=== PATIENT | female | born 1935 | race Caucasian/White ===

== ENCOUNTER → 2023-08-06 16:28 | Outpatient (REF) | payer OTHER, SELFPAY | LOC: RAD 16:28 | PROVIDERS: ATTENDING PHYSICIAN Internal Medicine Critical Care Medicine; FAMILY PHYSICIAN Physician Assistant | DX: J47.9 Bronchiectasis, uncomplicated (principal); R91.8 Other nonspecific abnormal finding of lung field | CPT/HCPCS: 71250 ==

== ENCOUNTER → 2024-03-14 14:07 | Outpatient (REF) | payer OTHER, SELFPAY ==
[2024-03-14 15:01] LABS: % Basophils 0.2 % (0-2); % Immature Granulocytes 0.8 % (0-0.5); % Lymphocytes 4.2 % (20.5-51.1); % Monocytes 10.5 % (1.7-9.3); % Neutrophils 84.3 % (42.2-75.2); Absolute Basophils 0.1 10^3/uL (0-0.2); Absolute Immature Granulocytes 0.2 10^3/uL (0-0.05); Absolute Lymphocytes 0.9 10^3/uL (1.2-3.4); Absolute Monocytes 2.4 10^3/uL (0.1-0.6); Absolute Neutrophils 18.8 10^3/uL (1.4-6.5); Hematocrit 31.8 % (37.0-47.0); Hemoglobin 10.8 g/dL (12.0-16.0); Mean Corpuscular Hgb 29.8 pg (27.0-31.0); Mean Corpuscular Volume 87.8 fL (81.0-99.0); Mean Platelet Volume 10.1 fL (7.4-10.4); Nucleated Red Blood Cells % 0 %; Platelet Count 388 10^3/uL (130-400); Red Blood Cell Count 3.62 10^6/uL (4.20-5.40); Red Cell Dist. Width 13.1 % (11.5-14.5); White Blood Cell Count 22.4 10^3/uL (4.8-10.8)
[2024-03-14 15:17] LABS: ALT (SGPT) 23 U/L (0-35); AST (SGOT) 38 U/L (14-36); Albumin 3.8 g/dl (3.5-5.0); Alkaline Phosphatase 139 U/L (38-126); Blood Urea Nitrogen 10 mg/dl (7-17); Calcium 8.9 mg/dl (8.4-10.2); Carbon Dioxide 27 mmol/L (22-30); Chloride 96 mmol/L (98-107); Glucose 124 mg/dl (70-99); Potassium 3.4 mmol/L (3.5-5.1); Sodium 136 mmol/L (135-145); Total Bilirubin 0.6 mg/dl (0.2-1.3); Total Protein 6.7 g/dl (6.3-8.2); eGFR > 60.00
== END ==
LOC: RAD 14:07
PROVIDERS: ATTENDING PHYSICIAN Family Medicine; FAMILY PHYSICIAN Physician Assistant
DX: J18.9 Pneumonia, unspecified organism (principal); R06.02 Shortness of breath
CPT/HCPCS: 36415; 71046; 80053; 85025

== ENCOUNTER 2024-05-18 03:30 | Inpatient (IN) | payer OTHER, SELFPAY ==
[2024-05-17 21:21] VITALS: BP 130/61; BMI 24.8
[2024-05-17 21:49] LABS: Hematocrit 35.5 % (37.0-47.0); Hemoglobin 11.8 g/dL (12.0-16.0); Mean Corp Hgb Conc. 33.2 g/dL (33.0-37.0); Mean Corpuscular Hgb 28.1 pg (27.0-31.0); Mean Corpuscular Volume 84.5 fL (81.0-99.0); Mean Platelet Volume 9.2 fL (7.4-10.4); Platelet Count 326 10^3/uL (130-400); Red Cell Dist. Width 13.4 % (11.5-14.5); White Blood Cell Count 11.5 10^3/uL (4.8-10.8)
--- NOTE | 2024-05-17 21:54 | ED.GENMED ---
History of Present Illness
General
Chief Complaint: Breathing Problem
Source: patient
Time Seen by Provider: 05/17/24 21:40
History of Present Illness
History of Present Illness:
89-year-old female presents to the emergency room for evaluation of shortness of breath, fever, cough. Patient has a history of COPD for which she is chronically on 4 L nasal cannula. Patient states her symptoms began about 6 days ago. She was
seen by her primary care provider about 3 days ago. She was started on a taper of prednisone. She believes she was swabbed for COVID and flu and they were negative but not sure. Patient states her cough is productive at times. She sometimes has
posttussive emesis.
Past History
Past History
ED Past Medical History: Other (Arthritis)
ED Past Surgical History: Cholecystectomy, Gynecological (Hysterectomy and breast biopsy), Tonsilectomy and Other (Breast biopsy)
Social History
Tobacco: Non-smoker
Alcohol: None
Drug: None
Living: with family
Family History
Family History: Negative Diabetes, Hypertension, Early CAD, Asthma or Cancer
Phy Exam
Physical Exam
Physical Exam:
General: Awake, Alert, Oriented X3. Appears stated age and chronically ill
Vitals: Febrile, tachycardic
Head: Atraumatic
Eyes: Pupils equal, EOMI
Throat: Airway intact, no exudates, mildly dry mucosa
Neck: Trachea midline
Lungs: Rhonchi particular in the right
Heart: Regular rate, no murmurs
Abd: Soft, Nontender, No pulsatile mass
Neuro: Nonfocal
Skin: Warm, dry, no rash
Extremities: pulses equal b/l, no edema
Scores
Heart Failure Risk
Heart Failure Risk Score: Not Applicable
Sepsis
Sepsis Screening
Sepsis Assessment: Sepsis Ruled Out
Sepsis Screen
Sepsis Screen: Sepsis Ruled Out
Date: 05/18/24
Time: 02:38
Course
Orders/Labs/Results
Orders:
Orders
05/17/24 21:19
Electrocardiogram (*1) Urgent
Reason for Study: Other
Other Reason for Exam: Respiratory Distress
Cardiac Monitoring- Treatment ONCE
EKG- Treatment ONCE
IV Insert/Care/Rem.- Treatment PRN
O2 Therapy [RESP] Urgent
Titrate/Wean O2 to maintain O2 sat greater than (%): 93
Special Instructions: TO MAINTAIN CONTINUOUS O2 SATS >/= 93%
Pulse Ox/cont/shift [RESP] Urgent
Quantity: 1
Special Instructions: continuous pulse ox
05/17/24 21:20
CR Chest Portable - 1 View Urgent
Comment:
Reason For Exam: respiratory distress
Reason Study Needs to be Portable: Patient Unstable
05/17/24 21:35
COVID-19 Antigen Urgent
Source: Nasal Swab
Complete Blood Count/With Diff Urgent
Comprehensive Metabolic Panel Urgent
NT-proBNP Urgent
Troponin I Urgent
Influenza A+B Rapid Molecular Urgent
[facility] Source: Nasal Swab
Specimen Description:
05/17/24 21:52
0.9% Sodium Chloride 500 ml [Nss] 500 ml IV BOLUS
Ipratropium/Albuterol Sulfate [Duoneb] 3 ml INH R NOW STA
Ondansetron Injectable [Zofran] 4 mg IV NOW STA
05/17/24 21:59
Lactate Level [Lactic Acid] Urgent
Blood Culture Urgent
[facility] Source: Blood/Venous
Specimen Description:
05/17/24 23:53
Troponin I Urgent
05/18/24 00:58
Electrocardiogram (*1) Urgent
Reason for Study: Fatigue / Weakness
EKG- Treatment ONCE
05/18/24 02:04
Urinalysis Reflex To Culture Urgent
Date Specimen was Collected: 05/18/24
Time Specimen was Collected: 02:01
Urine Microscopic Reflex Cult Urgent
Urine Culture Urgent
[place] Source: U
Specimen Description:
Date Specimen was Collected: 05/18/24
Time Specimen was Collected: :
Abnormal Lab Results
05/17/24 05/17/24 05/17/24
21:35 21:59 23:53
WBC 11.5 H 10^3/uL
(4.8-10.8)
Hgb 11.8 L g/dL
(12.0-16.0)
Hct 35.5 L %
(37.0-47.0)
Abs Immat Gran (auto) 0.1 H 10^3/uL
(0-0.05)
Absolute Neuts (auto) 10.6 H 10^3/uL
(1.4-6.5)
Absolute Lymphs (auto) 0.7 L 10^3/uL
(1.2-3.4)
Immature Gran % 0.6 H %
(0-0.5)
Neutrophils % 92.2 H %
(42.2-75.2)
Lymphocytes % 6.3 L %
(20.5-51.1)
Monocytes % 0.6 L %
(1.7-9.3)
Potassium 3.3 L mmol/L
(3.5-5.1)
Chloride 97 L mmol/L
(98-107)
BUN 20 H mg/dl
(7-17)
Glucose 108 H mg/dl
(70-99)
Lactic Acid 3.8 H mmol/L
(0.7-2.0)
Alkaline Phosphatase 140 H U/L
(38-126)
Troponin I 0.037 H* ng/ml 0.096 H* D ng/ml
Ur Occult Blood Reflex
Urine Nitrite (Reflex)
Leukocyte Esterase Rfl
Urine WBC (Reflex)
Urine Bacteria (Reflex)
Urine Albumin (Reflex)
05/18/24
02:04
WBC
Hgb
Hct
Abs Immat Gran (auto)
Absolute Neuts (auto)
Absolute Lymphs (auto)
Immature Gran %
Neutrophils %
Lymphocytes %
Monocytes %
Potassium
Chloride
BUN
Glucose
Lactic Acid
Alkaline Phosphatase
Troponin I
Ur Occult Blood Reflex 1+ A
(Negative)
Urine Nitrite (Reflex) Positive A
(Negative)
Leukocyte Esterase Rfl 2+ A
(Negative)
Urine WBC (Reflex) >100 A /HPF
(0-5)
Urine Bacteria (Reflex) Many A
(Negative)
Urine Albumin (Reflex) 1+ A
(Neg - Trace)
05/17/24 21:35
05/17/24 21:35
Vital Signs
Initial and Last Documented VS:
Initial Vital Signs
Temp Pulse BP Pulse Ox
101.1 F H 113 130/61 91
05/17/24 21:21 05/17/24 21:21 05/17/24 21:21 05/17/24 21:21
Last Documented Vital Signs
Temp Pulse Resp BP Pulse Ox
101.1 F H 97 19 91/52 91
05/17/24 21:21 05/17/24 23:00 05/17/24 23:00 05/17/24 22:48 05/17/24 23:00
MDM/Problems Addressed
Differential Diagnosis Includes:
Pneumonia, influenza, COPD exacerbation,
MDM/Problems Addressed:
Patient presents emergently with increased work of breathing, cough. She has had a fever for several days. Her primary care doctor tested her for COVID and flu and it was negative. They were treating her supportively. Today she developed nausea
vomiting and diarrhea. Upon arrival to the emergency room she did have significant wheezing however this resolved with nebs. Chest x-ray does not show any infiltrate. Her labs show minimally elevated bated white blood cell count. Chemistry
showed mild hypokalemia. She does appear a bit dry with an elevated BUN. Troponin was mildly elevated 0.037 this was repeated and increased to 0.096. This is very likely a nonischemic elevation of the troponin related to her acute illness. EKG
shows no convincing evidence for acute coronary syndrome. Patient provided a urine specimen however it has a large number of squamous epithelial cells so I suspect this is a contaminated specimen. Would not start antibiotics based on the specimen.
Patient likely could go home however with these elevated troponins feel it is best observe the patient overnight and trended.
*Radiology
Radiology exam reviewed: preliminary read by ED provider (No acute infiltrates on my review)
*Pulse Oximetry
Patient hypoxic: no
*EKG
Interpreted by ED Provider?: Yes
Heart Rate: 110
Rate: tachycardiac
Rhythm: sinus tachycardia
[place]: normal axis
Interval: normal interval
Ischemia: non-specific ST changes
*Rental Counter Clerk Interpretation
Rate: tachycardiac
Interpretation: abnormal
Rhythm: sinus tachycardia
*Critical Care Note
Total Time (30-74mins, 75-104mins- exclusive of procedures): Not Applicable
ED Attending Note
-
Portions of this chart may have been created with voice recognition software.� Occasional wrong word or��sound alike� substitutions may have occurred due to the inherent limitations of voice recognition software.
Discharge Plan
Departure
Patient Disposition: Admit
Date of Disposition: 05/18/24
Time of Disposition: 01:45
Admit to: Telemetry
Presentation/result/management discussed w/ accepting MD/DO: Hospitalist
Condition: Fair
Discharge Problem:
Fever, Acute exacerbation of chronic obstructive pulmonary disease, Nausea & vomiting, Diarrhea
Prescriptions:
No Action
multivitamin Tablet
1 tab PO DAILY
sertraline 100 mg tablet
100 mg PO DAILY
amlodipine 5 mg tablet
5 mg PO DAILY
aspirin 81 mg Tablet,Delayed Release (Dr/Ec)
81 mg PO DAILY
hydrochlorothiazide 12.5 mg capsule
12.5 mg PO DAILY
rosuvastatin 20 mg tablet
20 mg PO DAILY
cholecalciferol (vitamin D3) [Vitamin D3] 50 mcg (2,000 unit) Tablet
50 mcg PO DAILY
ipratropium-albuterol 0.5 mg-3 mg(2.5 mg base)/3 mL solution for nebulization
3 ml INHALATION R TID
Trelegy Ellipta 100-62.5-25 mcg blister with device
1 inh INHALATION R DAILY
ferrous sulfate [FeroSul] 325 mg (65 mg iron) Tablet
325 mg PO Q48H 30 Days Qty: 15 0RF
albuterol sulfate 90 mcg/actuation HFA aerosol inhaler
2 puff inhalation Q6H PRN (Reason: shortness of breath or wheezing) Qty: 8.5 0RF
Referrals:
Torrie Castillo PA [Family Provider] -
Interventions
Interventions:
*Risk Screen - Suicide Last Done: 05/17/24 21:21
*General Assessment Last Done: 05/17/24 21:21
*Neglect/Abuse Screening Last Done: 05/17/24 21:21
ED- Fall Risk Assessment Last Done: 05/17/24 23:20
*ED COVID-19 Vaccine History Last Done: 05/17/24 21:21
ED- Cardiac Assessment Last Done: 05/17/24 23:20
ED- Pulmonary Assessment Last Done: 05/17/24 23:20
Discharge Date and Time
Print Language: BURUNDIAN
[2024-05-17 21:56] LABS: ALT (SGPT) 20 U/L (0-35); AST (SGOT) 31 U/L (14-36); Albumin 4.2 g/dl (3.5-5.0); Alkaline Phosphatase 140 U/L (38-126); Blood Urea Nitrogen 20 mg/dl (7-17); Calcium 8.8 mg/dl (8.4-10.2); Carbon Dioxide 27 mmol/L (22-30); Chloride 97 mmol/L (98-107); Estimated Creatinine Clearance 43 ml/min; Glucose 108 mg/dl (70-99); Potassium 3.3 mmol/L (3.5-5.1); Sodium 138 mmol/L (135-145); Total Bilirubin 0.4 mg/dl (0.2-1.3); Total Protein 7.1 g/dl (6.3-8.2); eGFR > 60.00
[2024-05-17 22:02] LABS: COVID-19 Antigen Negative (Negative)
[2024-05-17] MEDS: DUONEB 3 ML INH (22:05)
[2024-05-17] MEDS: NSS 500 IV (22:05)
[2024-05-17] MEDS: ZOFRAN 4 MG IV (22:06)
[2024-05-17 22:09] LABS: NT-proBNP 2050 pg/ml; Troponin I 0.037 ng/ml
[2024-05-17 22:19] LABS: Lactic Acid 3.8 mmol/L (0.7-2.0)
[2024-05-17 22:21] LABS: % Basophils 0.3 % (0-2); % Immature Granulocytes 0.6 % (0-0.5); % Lymphocytes 6.3 % (20.5-51.1); % Monocytes 0.6 % (1.7-9.3); % Neutrophils 92.2 % (42.2-75.2); Absolute Immature Granulocytes 0.1 10^3/uL (0-0.05); Absolute Lymphocytes 0.7 10^3/uL (1.2-3.4); Absolute Monocytes 0.1 10^3/uL (0.1-0.6); Absolute Neutrophils 10.6 10^3/uL (1.4-6.5); Nucleated Red Blood Cells % 0 %
[2024-05-17 22:48] VITALS: BP 91/52
[2024-05-17 23:00] VITALS: BP 119/47
[2024-05-18] VITALS (15 sets, daily range): BP systolic 77–160; BP diastolic 53–82; PULSE 84–90; O2SAT 92–95; BMI 24.6
[2024-05-18 00:36] LABS: Troponin I 0.096 ng/ml
[2024-05-18 02:10] LABS: Urine Albumin 1+ (Neg - Trace); Urine Bilirubin Negative (Negative); Urine Character Slightly Cloudy (Clear); Urine Color Yellow; Urine Glucose Negative (Negative); Urine Ketone Negative (Negative); Urine Leukocyte 2+ (Negative); Urine Nitrite Positive (Negative); Urine Occult Blood 1+ (Negative); Urine Urobilinogen Negative (Neg - 1+)
[2024-05-18 02:21] LABS: Urine Amorphous Seen; Urine Bacteria Many (Negative); Urine Mucus Many; Urine Squamous Cell >30 /LPF (Few)
[2024-05-18 02:22] LABS: Urine White Cell >100 /HPF (0-5)
[2024-05-18 02:23] LABS: Urine Urothelial Cell >30 /LPF (FEW)
--- NOTE | 2024-05-18 02:49 | HPS.HSE ---
Family Physician
-
Family Physician: DANYEL Butler
Chief Complaint
-
Fever, Diarrhea, Cough
History of Present Illness
Patient is an 89y F with PMH significant for COPD with chronic hypoxemia and hypertension who presents to ED complaining of cough, fever and diarrhea. Patient states that she has been feeling poorly for about one week now. She had nausea
without emesis, diarrhea that has since improved and very poor appetite / limited PO intake. She developed cough productive of thick, white mucus. She notes some increase from her baseline dyspnea. She is chronically on 4 lpm of oxygen and this
has not changed.
Patient began to feel progressively more weak and fatigued and presented to the ED for evaluation.
She denies any chest pain, pressure or tightness. No palpitations.
Patient notes that she was seen by her PCP about 3 days ago and started on oral steroid taper at that time.
No other new medications.
No known sick contacts.
Medical History
Past Medical History
Past Medical History: Reports Other
Additional Past Medical History:
COPD
Chronic Hypoxemic Respiratory Insufficiency on Chronic O2
Bronchiectasis
History of Stenotrophomona maltophilia
Hypertension
Prior CVA (by imaging)
Anxiety / Depression
Past Surgical History: Reports Other
Additional Past Surgical History:
Cholecystectomy
Hysterectomy
Breast Biopsy
T&A
Social History
Tobacco: Former Smoker (Quit smoking in 1980s.)
Alcohol: None
Drug: None
Family History
Family History: Not pertinent
Allergies / Home Medications
Allergies reflects when Allergies were last updated in [facility].
Home Medications with original date entered in [facility]
Allergy/Medication List:
Allergies
Allergy/AdvReac Type Severity Reaction Status Date / Time
codeine [Codeine] Allergy headache Verified 04/03/23 11:37
naproxen sodium [From Aleve] Allergy Itching Verified 04/03/23 11:37
Home Medications
amlodipine 5 mg tablet 5 mg PO DAILY Blood pressure 06/22/22
aspirin 81 mg tablet,delayed release 81 mg PO DAILY Blood clot prevention/tx 06/22/22
cholecalciferol (vitamin D3) 50 mcg (2,000 unit) tablet (Vitamin D3) 50 mcg PO DAILY Supplement 06/22/22
hydrochlorothiazide 12.5 mg capsule 12.5 mg PO DAILY Fluid retention/Swelling 06/22/22
multivitamin 1 tab PO DAILY Supplement 06/22/22
rosuvastatin 20 mg tablet 20 mg PO DAILY High cholesterol 06/22/22
sertraline 100 mg tablet 100 mg PO DAILY Mental Health/Anxiety 06/22/22
fluticasone fur. 100 mcg-umeclid 62.5 mcg-vilant 25 mcg inhalat.powder (Trelegy Ellipta) 1 inh inhalation R DAILY Lung/Breathing Issues 04/03/23
ipratropium 0.5 mg-albuterol 3 mg (2.5 mg base)/3 mL nebulization soln 3 ml inhalation R TID Lung/Breathing Issues 04/03/23
albuterol sulfate 90 mcg/actuation aerosol inhaler 2 puff inhalation Q6H PRN shortness of breath or wheezing #8.5 grams 04/08/23
ferrous sulfate 325 mg (65 mg iron) tablet (FeroSul) 325 mg PO Q48H 30 days #15 tabs 04/08/23
Review of Systems
-
History Source: Patient
A 12 point ROS was completed and negative except as noted: Yes
Constitutional: Reports Fever, Fatigue and Chills
EENT: Denies Sore Throat
Respiratory: Reports Cough and Trouble Breathing
Cardiac: Denies Chest Pain, Diaphoresis, Palpitations or Syncope
Abdomen/GI: Reports Nausea and Diarrhea; Denies Abdominal Pain or Vomiting
: Denies Dysuria, Frequency or Flank Pain
Musculoskeletal: Denies Joint Pain or Edema
Neurological: Denies Dizzy or Headache
Psych: Denies Depression or Anxiety
Physical Exam
Vital Signs
Vital Signs
Temp Pulse Resp BP Pulse Ox
98.8 F 97 19 91/52 91
05/18/24 01:00 05/17/24 23:00 05/17/24 23:00 05/17/24 22:48 05/17/24 23:00
Physical Exam
General: Other
HEENT: Other (Dry MM. Neck supple.)
Respiratory: Other (Faint expiratory wheezes scattered. No focal rales / rhonchi.)
Cardiac: S1/S2 and Regular Rhythm (with ectopy.); No Murmur
GI: Soft, Non Tender, Non Distended and Normal Bowel Sounds
Musculoskeletal: No Clubbing, No Cyanosis and No Edema
Neuro: AO x 3
Laboratory Results
-
05/17/24 21:35
05/17/24 21:35
Laboratory Results
Lactic Acid 3.8 mmol/L (0.7-2.0) H 05/17/24 21:59
Total Bilirubin 0.4 mg/dl (0.2-1.3) 05/17/24 21:35
AST 31 U/L (14-36) 05/17/24 21:35
ALT 20 U/L (0-35) 05/17/24 21:35
Alkaline Phosphatase 140 U/L (38-126) H 05/17/24 21:35
Troponin I 0.096 ng/ml H* D 05/17/24 23:53
Impression/Plan
-
A/P: Patient is an 89y F with PMH significant for COPD and chronic hypoxemia who presents to ED complaining of one week of fever, malaise, anorexia, diarrhea and cough.
Chronic Bronchitis / Pneumonia
Possible Viral Syndrome
Sepsis secondary to the above
Lactic Acidosis secondary to the above
- Observe overnight for further evaluation and treatment.
- Patient presents with fever, tachycardia and tachypnea with cough and abnormal CXR.
- COVID and influenza negative in the ED.
- Empiric ceftriaxone / doxycycline given chronic lung disease / cough / possible acute infection.
- Supportive care, IVF resuscitation, antiemetics, etc.
- Follow fever curve, bowel habits, etc.
- Follow for clinical improvement.
- Follow-up culture data and begin IV abx if appropriate.
Abnormal Troponin
- Initial troponin 0.037 and increased to 0.096.
- No complaints of chest pain and no acute ischemia on EKG.
- Suspect non-ischemic myocardial injury secondary to acute illness / sepsis.
- Monitor on tele and monitor for any new symptoms.
- Continue CV med regimen including ASA, statin, etc.
- Cardiology evaluation.
- Continue to follow troponin to peak.
Benign Hypertension
- BP lower at present secondary to sepsis.
- Hold BP medications acutely and resume when appropriate.
COPD
- Some increased cough without wheezing.
- IV abx, supportive care, nebs as noted above.
- Observe off of systemic steroids for now.
Anxiety / Depression
- Stable. Continue sertraline.
DVT Prophylaxis: Subcut heparin
Code Status: Full
[2024-05-18] MEDS: ROCEPHIN 1000 MG IV (03:49)
[2024-05-18] MEDS: STERILE WATER FOR INJECTION 10 ML IV (03:49)
[2024-05-18] MEDS: NSS 500 IV (03:57)
[2024-05-18 04:17] LABS: Lactic Acid 1.1 mmol/L (0.7-2.0)
[2024-05-18] MEDS: LR 1000 IV ×2 (05:53→16:33)
--- NOTE | 2024-05-18 06:00 | PTCARENOTE ---
Received patient from ED via stretcher; Telemetry order> NSR on the monitor. VSS- afebrile, HR 91, RR 18, BP 110/55, pox 95% 4LNC (chronic for patient). No c/o pain. AAOx3, B/L hearing aides, x1 assist. PMH and medications reviewed by this RN and
patient. Patient states she no longer takes ASA 81mg. Plan of care discussed. Call govea within reach.
[2024-05-18 06:16] LABS: Hematocrit 30.7 % (37.0-47.0); Hemoglobin 9.9 g/dL (12.0-16.0); Mean Corp Hgb Conc. 32.2 g/dL (33.0-37.0); Mean Corpuscular Hgb 28.1 pg (27.0-31.0); Mean Corpuscular Volume 87.2 fL (81.0-99.0); Mean Platelet Volume 9.6 fL (7.4-10.4); Platelet Count 377 10^3/uL (130-400); Red Blood Cell Count 3.52 10^6/uL (4.20-5.40); Red Cell Dist. Width 13.6 % (11.5-14.5); White Blood Cell Count 41.6 10^3/uL (4.8-10.8)
--- NOTE | 2024-05-18 06:17 | PTCARENOTE ---
Critical WBC 41.6 (from 11.5 in ED) House ROTARY SAW OPERATOR made aware
[2024-05-18 06:35] LABS: Blood Urea Nitrogen 21 mg/dl (7-17); Calcium 7.7 mg/dl (8.4-10.2); Carbon Dioxide 28 mmol/L (22-30); Chloride 99 mmol/L (98-107); Estimated Creatinine Clearance 38 ml/min; Glucose 111 mg/dl (70-99); Potassium 3.1 mmol/L (3.5-5.1); Sodium 137 mmol/L (135-145); eGFR > 60.00
[2024-05-18 06:52] LABS: Troponin I 0.067 ng/ml
[2024-05-18 07:06] LABS: TSH Reflex To Free T4 2.54 uIU/ml (0.47-4.68)
[2024-05-18] MEDS: DUONEB 3 ML INH ×3 (07:45→19:28)
--- NOTE | 2024-05-18 08:21 | CON.CAR ---
Consultation
Consultation Request
Date/Time Consultation Requested: 05/18/24
Date/Time Consultation Performed: 05/18/24
Requesting Provider: Dr Stover
Performing Provider: Dr Buenrostro
Reason for Consultation: Abnormal troponin
Medical History
-
Chief Complaint: Fever diarrhea cough
History of Present Illness:
89-year-old female with a past medical history of oxygen dependent COPD , hypertension, bronchiectasis, hypercholesterolemia and GERD, presented with cough, fever and diarrhea for 1 week. Additionally she developed a cough productive of sputum. Of
note, she was seen by her primary care doctor and started on a steroid taper for days ago. She presented because she began to feel fever and chills at home. Currently she is feeling much better. No more diarrhea since being here. We are asked to
comment on her abnormal troponin. She has never had any chest pain or pressure. She feels like she is getting relief from her nebulizers. No nausea and is tolerating p.o.
Past Medical History
Past Medical History: COPD (Oxygen dependent), GERD, HTN and Hypercholesterolemia
Past Surgical History: Cholecystectomy
Social History
Tobacco: Former Smoker ( quit in the )
Alcohol: None
Family History
Family History: Reviewed & Not Pertinent
Allergies / Home Medications
Allergy/AdvReac Type Severity Reaction Status Date / Time
codeine [Codeine] Allergy headache Verified 04/03/23 11:37
naproxen sodium [From Aleve] Allergy Itching Verified 04/03/23 11:37
�Medication �Instructions �Recorded �Confirmed �Type
amlodipine 5 mg tablet 5 mg PO DAILY Blood pressure 06/22/22 05/17/24 History
aspirin 81 mg tablet,delayed 81 mg PO DAILY Blood clot 06/22/22 05/17/24 History
release prevention/tx
cholecalciferol (vitamin D3) 50 50 mcg PO DAILY Supplement 06/22/22 05/17/24 History
mcg (2,000 unit) tablet (Vitamin
D3)
hydrochlorothiazide 12.5 mg capsule 12.5 mg PO DAILY Fluid 06/22/22 05/17/24 History
retention/Swelling
multivitamin 1 tab PO DAILY Supplement 06/22/22 05/17/24 History
rosuvastatin 20 mg tablet 20 mg PO DAILY High cholesterol 06/22/22 05/17/24 History
sertraline 100 mg tablet 100 mg PO DAILY Mental 06/22/22 05/17/24 History
Health/Anxiety
fluticasone fur. 100 mcg-umeclid 1 inh inhalation R DAILY 04/03/23 05/17/24 History
62.5 mcg-vilant 25 mcg Lung/Breathing Issues
inhalat.powder (Trelegy Ellipta)
ipratropium 0.5 mg-albuterol 3 mg 3 ml inhalation R TID 04/03/23 05/17/24 History
(2.5 mg base)/3 mL nebulization Lung/Breathing Issues
soln
albuterol sulfate 90 mcg/actuation 2 puff inhalation Q6H PRN 04/08/23 05/17/24 Rx
aerosol inhaler shortness of breath or wheezing
#8.5 grams
ferrous sulfate 325 mg (65 mg 325 mg PO Q48H 30 days #15 tabs 04/08/23 05/17/24 Rx
iron) tablet (FeroSul)
Review of Systems
-
All other systems: Negative unless noted
Physical Exam
Vital Signs
Temp Pulse Resp BP Pulse Ox
98.1 F 77 16 110/55 96
05/18/24 04:47 05/18/24 07:48 05/18/24 07:48 05/18/24 04:47 05/18/24 07:48
Lab Results
05/18/24 05:47
Troponin I Cancelled 05/18/24 16:37
Two-C-Chbwqlxkgrk Pept 2050 pg/ml 05/17/24 21:35
Physical Exam
General: Well Developed and Well Nourished
HEENT: Normocephalic
Respiratory: Rhonchi (diffuse bilateral)
Cardiac: S1/S2 and Regular Rhythm; Negative Murmur, Rub or Peripheral Edema
GI: Soft and Non Tender
Neuro: AO x 3
Impression / Plan
-
89-year-old with past medical history of oxygen dependent COPD, hypertension hyperlipidemia presented with 1 week of fever, chills, cough and diarrhea. We are asked to comment on normal troponin.
Elevated troponin due to hypoxic respiratory failure and acute viral illness.
She has had no chest pain or abnormal EKG.
Will update echo given history of hypertension for baseline study.
Continue management of underlying disease.
Hypertension, chronic stable. Continue amlodipine.
Hyperlipidemia: Chronic, stable continue statin
Thank you for allow me to participate in her care. I will see her again at your request.
Data Reviewed
-
EKG: Tracing Personally Visualized and interpreted ( EKG 05/18/2024 shows normal sinus rhythm)
Radiology: Image Personally Visualized and interpreted (Chest x-ray diffuse interstitial prominence likely reflects interstitial lung disease versus superimposed pneumonitis)
Labs: Labs Reviewed by me (Notable for marked leukocytosis 41.6 increased from 11.5 on admission troponin 0.37-0 0.96-0.67)
[2024-05-18 09:09] LABS: Hematocrit 28.2 % (37.0-47.0); Hemoglobin 9.5 g/dL (12.0-16.0); Mean Corp Hgb Conc. 33.7 g/dL (33.0-37.0); Mean Corpuscular Hgb 28.4 pg (27.0-31.0); Mean Corpuscular Volume 84.4 fL (81.0-99.0); Mean Platelet Volume 9.6 fL (7.4-10.4); Platelet Count 324 10^3/uL (130-400); Red Blood Cell Count 3.34 10^6/uL (4.20-5.40); Red Cell Dist. Width 13.6 % (11.5-14.5); White Blood Cell Count 35.3 10^3/uL (4.8-10.8)
--- NOTE | 2024-05-18 09:40 | PTCARENOTE ---
Addendum entered by Rupal Bowen 05/18/24 14:42:
Updated Dr. Guan that pt's blood culture is now showing E.Coli.
Original Note:
Made Dr. Jonny Guan aware of pt's positive blood culture result at this time.
[2024-05-18] MEDS: ASPIR LOW (ENTERIC COATED) 81 MG PO (09:47)
[2024-05-18] MEDS: CRESTOR 20 MG PO (09:47)
[2024-05-18] MEDS: VIBRAMYCIN 100 MG PO (09:47)
[2024-05-18] MEDS: ZOLOFT 100 MG PO (09:47)
[2024-05-18] MEDS: HEPARIN 5000 UNITS SC ×2 (09:47→22:00)
[2024-05-18] MEDS: PROTONIX IV 40 MG IV (09:47)
[2024-05-18] MEDS: KCL ELIXIR 40 MEQ PO ×2 (09:48→14:35)
[2024-05-18] MEDS: NSS (PRESERVATIVE FREE) 10 ML IV (09:50)
[2024-05-18 10:08] LABS: Band Neutrophils 12 % (0-3); Lymphocytes 9 % (20-51); Monocytes 6 % (2-9); Normal RBC Morphology Yes; Platelets Checked Yes; Segmented Neutrophils 73 % (42-75)
[2024-05-18 10:09] LABS: Toxic Granulation 1+
[2024-05-18 10:10] LABS: Total Cells Counted 100
--- NOTE | 2024-05-18 11:37 | W.PN.HOSP.TC ---
Today's Communication/Plan
-
Assessment / Plan
Assessment / Plan
GNR bacteremia, unclear source, potentially pulmonary/GI as there is no urinary symptoms
-Continue Rocephin
-Await for sensitivities and speciation
-Continue to monitor for diarrhea if has additional episodes check stool studies
Chronic hypoxemic respiratory failure, 4 L home O2
-COVID flu
Demand ischemia in the setting of acute infection
-No chest pain no EKG changes
-Troponins down trended
-Cardiology eval
COPD
-Not in exacerbation as there is no wheezing
Anxiety/depression
-Continue anxiolytics/antidepressants
Anticipated Discharge: 24 - 48 hours
Subjective/Interval History
-
Date of Service: May 18, 2024
Seen and examined. No new complaints. No acute overnight events.
Objective Data
-
Labs:
Laboratory Results
05/18/24 05/18/24
05:47 08:25
WBC 41.6 H* 35.3 H
Hgb 9.9 L 9.5 L
Hct 30.7 L 28.2 L
Plt Count 377 324
Sodium 137
Potassium 3.1 L
Chloride 99
Carbon Dioxide 28
BUN 21 H
Creatinine 0.9
Glucose 111 H
Calcium 7.7 L
Vital Signs:
Vital Signs
Temp Pulse Resp BP Pulse Ox
98.1 F 77 16 102/57 96
05/18/24 07:00 05/18/24 07:48 05/18/24 07:48 05/18/24 07:00 05/18/24 07:48
I&O
05/17/24 05/18/24 05/19/24
06:59 06:59 06:59
Intake Total 100 / 100 180 / 180
Balance 100 / 100 180 / 180
Physical Exam
-
General: Well Developed and Well Nourished
HEENT: Normocephalic and Atraumatic
Respiratory: Clear to Auscultation
Cardiac: Regular Rhythm
GI: Soft, Nontender and Nondistended
Skin: Warm
Neuro: Awake, Alert, Oriented and AO x 3
Psych: Calm
--- NOTE | 2024-05-18 19:21 | PTCARENOTE ---
When attempting to get orthostatic vital signs on pt, pt became extremely SOB. Assisted pt back into bed and still having SOB sating 82% on 4L NC, 34 resp, 101hr, and BP 160/76. RN increased pt to 6L NC, sating 95%. RN notified respiratory - given
neb treatment. After treatment, pt still complaining of SOB sating 95% on 5L NC, 24 resp, 96hr, 138/65. RN notified LIP OF SHANK CUTTER- up to see patient. After pt talked to LIP OF SHANK CUTTER, she stated she felt more relief. Pt is resting in bed with call govea within reach.
[2024-05-18] MEDS: TYLENOL 650 MG PO (20:01)
[2024-05-18] MEDS: VIBRAMYCIN PO (20:23)
[2024-05-18] MEDS: MELATONIN 3 MG PO (21:58)
[2024-05-19] MEDS: ROCEPHIN 1000 MG IV (03:10)
[2024-05-19] MEDS: STERILE WATER FOR INJECTION 10 ML IV (03:10)
[2024-05-19 03:31] VITALS: BP 121/61
[2024-05-19] MEDS: LR 1000 IV (05:16)
[2024-05-19 06:00] VITALS: BMI 26.5
[2024-05-19] MEDS: VENTOLIN NEBULES 2.5 MG INH ×3 (06:47→20:05)
[2024-05-19] MEDS: SPIRIVA RESPIMAT 2.5 MCG 2 PUFF INH (06:47)
[2024-05-19] MEDS: DUONEB INH (06:47)
[2024-05-19] MEDS: STRIVERDI RESPIMAT 2 PUFF INH (06:48)
[2024-05-19 07:00] VITALS: BP 102/58; BP 108/63; BP 116/57; PULSE 75; PULSE 84; PULSE 89
[2024-05-19] MEDS: ASPIR LOW (ENTERIC COATED) 81 MG PO (08:37)
[2024-05-19] MEDS: ZOLOFT 100 MG PO (08:37)
[2024-05-19] MEDS: VIBRAMYCIN 100 MG PO ×2 (08:37→19:44)
[2024-05-19] MEDS: HEPARIN 5000 UNITS SC ×2 (08:37→19:44)
[2024-05-19] MEDS: CRESTOR 20 MG PO (08:37)
[2024-05-19] MEDS: NSS (PRESERVATIVE FREE) 10 ML IV (08:38)
[2024-05-19] MEDS: PROTONIX IV 40 MG IV (08:38)
[2024-05-19] MEDS: FLUSH (NSS) 1 FLUSH IV (08:38)
[2024-05-19 09:38] LABS: Hematocrit 29.6 % (37.0-47.0); Hemoglobin 9.8 g/dL (12.0-16.0); Mean Corp Hgb Conc. 33.1 g/dL (33.0-37.0); Mean Corpuscular Volume 84.6 fL (81.0-99.0); Platelet Count 274 10^3/uL (130-400); Red Cell Dist. Width 13.7 % (11.5-14.5); White Blood Cell Count 21.7 10^3/uL (4.8-10.8)
[2024-05-19 11:23] LABS: Blood Urea Nitrogen 18 mg/dl (7-17); Calcium 7.9 mg/dl (8.4-10.2); Carbon Dioxide 27 mmol/L (22-30); Chloride 101 mmol/L (98-107); Estimated Creatinine Clearance 43 ml/min; Glucose 114 mg/dl (70-99); Potassium 3.4 mmol/L (3.5-5.1); Sodium 135 mmol/L (135-145); eGFR > 60.00
[2024-05-19 11:34] VITALS: BP 120/54
[2024-05-19] MEDS: LR IV (13:20)
--- NOTE | 2024-05-19 15:17 | PN.CDI ---
CDI
- -
CDI:
Physician Documentation Request
Admit Date: 05/18/24 03:30
Dear Doctor Roge,
Please review the following and provide your response in the progress notes.
Clinical Indicators:
Pt admitted with Fever/possible Viral syndrome
Documented per H&P, ' Chronic Bronchitis / Pneumonia Possible Viral Syndrome Sepsis secondary to the above... Patient presents with fever, tachycardia and tachypnea with cough and abnormal CXR.......'
Progress note 1/, ' GNR bacteremia, unclear source, potentially pulmonary/GI as there is no urinary symptomsContinue Rocephin...'
On admission Tmax 101.1,HR 115, Respirations 28 , WBC 11.5 then up to 41.6
Please update the status of sepsis documented in H&P:
Sepsis-POA /Still being monitored/teated
- Systemic manifestations of infection, with 2 or more SIRS criteria which include:
- Fever >100.4 degrees F or hypothermia < 96.8 degrees F
- Leukocytosis - WBC > 12,000 or leukopenia - WBC < 4,000 or > 10% bands
- Tachycardia > 90 beats per minute
- Tachypnea - RR > 20 breaths per minute or PaCO2 , 32mmHg
Source: Merck Manual 2012
Sepsis-Ruled out
Other ( please specify)
Use of terms such as suspected, likely, concern for, or probable (associated with a specific diagnosis that is being evaluated, monitored, or treated as if it exists) are acceptable and can be coded in the inpatient setting, when documented at the
time of discharge.
Thank you,
Senia Segundo RN
CDI Specialist
[place] [facility]
Please use your independent medical judgment in providing your response.
--- NOTE | 2024-05-19 15:28 | PN.CDI ---
CDI
- -
CDI:
Physician Documentation Request
Admit Date: 05/18/24 03:30
Dear Doctor Roge,
Please review the following and provide your response in the progress notes.
Clinical Indicators:
Pt admitted with Fever/possible Viral syndrome
Documented per H&P, ' Chronic Bronchitis / Pneumonia Possible Viral Syndrome....- Patient presents with fever, tachycardia and tachypnea with cough and abnormal CXR....'
Progress note 1/2, ' GNR bacteremia, unclear source, potentially pulmonary/GI as there is no urinary symptoms Continue Rocephin...'
Please update the status on pneumonia documented in H&P:
Pneumonia -a Valid dx/still being monitored /treated
Pneumonia ruled out
Other ( please specify)
Use of terms such as suspected, likely, concern for, or probable (associated with a specific diagnosis that is being evaluated, monitored, or treated as if it exists) are acceptable and can be coded in the inpatient setting, when documented at the
time of discharge.
Thank you,
Senia Segundo RN
CDI Specialist
[place] [facility]
Please use your independent medical judgment in providing your response.
[2024-05-19 15:53] VITALS: BP 109/60
--- NOTE | 2024-05-19 15:53 | PTCARENOTE ---
Pt AAO x3, JUNG; OB to BSC with assist x1; jatin well, tires easily. Pt sl anxious at times; has occ hand tremors. VSS. Telemetry:NSR. maintained on nc 4 lpm-pulse ox 96%, pt with (+) slight SHARMA/tachypnea; denies SOB. Abd soft, jatin PO well.
Voiding in BSC without difficulty. Resting in bed at present, no c/o. Will continue to monitor.
--- NOTE | 2024-05-19 17:10 | CM ---
Patient seen at bedside, patient indicated that she was doing better and plan remained home with [facility] if needed, will need referral to [facility]. Patient has home O2 from [facility]. CM will continue to follow for discharge planning needs.
Plan; home with VN if needed pending functional assessments
--- NOTE | 2024-05-19 17:12 | CM ---
Late entry:
patient seen 05/18/24
IA completed.
IMM completed.
Patient lives alone in a 1 story home.
Patient has home oxygen 4 liters thru [employer], has a nebulizer and rw.
patient does not have her portable concentrator here, but someone can bring at time for d/c.
patient independent prior to admission.
Not current with VN had [facility]yl in the past.
PCP: Dr Noe Hernandez
Pharmacy: [facility] [place]
Plan: home with possible VN
--- NOTE | 2024-05-19 17:39 | W.PN.HOSP.TC ---
Addendum entered and electronically signed by Jonny Guan MD 05/19/24 18:25:
Sepsis
Original Note:
Today's Communication/Plan
-
awaiting for speciation
Assessment / Plan
Assessment / Plan
Ecoli bacteremia, source UCx +
-Continue Rocephin
-Await for sensitivities
Chronic hypoxemic respiratory failure, 4 L home O2
-COVID flu negative
-?pulmonary cachexia
Demand ischemia in the setting of acute infection
-No chest pain no EKG changes
-Troponins down trended
-Cardiology eval
COPD
-Not in exacerbation as there is no wheezing
Anxiety/depression
-Continue anxiolytics/antidepressants
Anticipated Discharge: 24 - 48 hours
Subjective/Interval History
-
Date of Service: May 19, 2024
Seen and examined. No new complaints. No acute overnight events.
Feeling much better
No dysuria or frequency no flank pain
Has been on 4 L nasal cannula chronically
Follows with Dr. Abarca from pulmonary
Objective Data
-
Labs:
Laboratory Results
05/19/24
08:57
WBC 21.7 H
Hgb 9.8 L
Hct 29.6 L
Plt Count 274
Sodium 135
Potassium 3.4 L
Chloride 101
Carbon Dioxide 27
BUN 18 H
Creatinine 0.8
Glucose 114 H
Calcium 7.9 L
Vital Signs:
Vital Signs
Temp Pulse Resp BP Pulse Ox
97.6 F 84 18 109/60 96
05/19/24 15:53 05/19/24 15:53 05/19/24 15:53 05/19/24 15:53 05/19/24 15:53
I&O
0105/19/24 05/20/24
06:59 06:59 06:59
Intake Total 2580 / 2579 780 / 780
Balance / 2579 / 2579 780 / 780
Physical Exam
-
General: Well Developed and Well Nourished
HEENT: Normocephalic and Atraumatic
Respiratory: Clear to Auscultation
Cardiac: Regular Rhythm and S1/S2
GI: Soft, Nontender and Nondistended
Skin: Warm
Neuro: Awake, Alert, Oriented and AO x 3
Psych: Calm
[2024-05-19 19:50] VITALS: BP 132/72; BP 143/71; BP 162/72; PULSE 92; PULSE 98
[2024-05-19 23:30] VITALS: BP 136/73
[2024-05-20 03:55] VITALS: BP 130/82
[2024-05-20 06:00] VITALS: BMI 25.0
[2024-05-20] MEDS: ROCEPHIN 1000 MG IV (06:08)
[2024-05-20] MEDS: STERILE WATER FOR INJECTION 10 ML IV (06:08)
[2024-05-20 07:55] VITALS: BP 121/66
[2024-05-20] MEDS: CRESTOR 20 MG PO (08:14)
[2024-05-20] MEDS: HEPARIN 5000 UNITS SC (08:14)
[2024-05-20] MEDS: ASPIR LOW (ENTERIC COATED) 81 MG PO (08:14)
[2024-05-20] MEDS: VIBRAMYCIN 100 MG PO (08:14)
[2024-05-20] MEDS: ZOLOFT 100 MG PO (08:14)
[2024-05-20] MEDS: PROTONIX IV 40 MG IV (08:15)
[2024-05-20] MEDS: NSS (PRESERVATIVE FREE) 10 ML IV (08:15)
[2024-05-20] MEDS: TYLENOL 650 MG PO (08:26)
[2024-05-20 08:50] LABS: Hematocrit 29.6 % (37.0-47.0); Hemoglobin 9.9 g/dL (12.0-16.0); Mean Corp Hgb Conc. 33.4 g/dL (33.0-37.0); Mean Corpuscular Hgb 28.3 pg (27.0-31.0); Mean Corpuscular Volume 84.6 fL (81.0-99.0); Mean Platelet Volume 10.4 fL (7.4-10.4); Platelet Count 282 10^3/uL (130-400); Red Cell Dist. Width 13.5 % (11.5-14.5); White Blood Cell Count 12.5 10^3/uL (4.8-10.8)
[2024-05-20] MEDS: VENTOLIN NEBULES 2.5 MG INH (08:53)
[2024-05-20] MEDS: SPIRIVA RESPIMAT 2.5 MCG 2 PUFF INH (08:54)
[2024-05-20] MEDS: STRIVERDI RESPIMAT 2 PUFF INH (08:54)
[2024-05-20 09:35] LABS: Blood Urea Nitrogen 12 mg/dl (7-17); Calcium 8.1 mg/dl (8.4-10.2); Carbon Dioxide 32 mmol/L (22-30); Chloride 99 mmol/L (98-107); Estimated Creatinine Clearance 49 ml/min; Glucose 100 mg/dl (70-99); Potassium 3.5 mmol/L (3.5-5.1); Sodium 139 mmol/L (135-145); eGFR > 60.00
--- NOTE | 2024-05-20 09:54 | CM ---
Pt for discharge to home today. Known to [facility] and services will resume following discharge. Referral sent to [facility] via [facility]. Pt's daughter will provide transport home at discharge.
Plan: Discharge to home with resumption of [facility].
[facility]
[2024-05-20 11:55] VITALS: BP 137/53
--- NOTE | 2024-05-20 14:40 | W.PN.HOSP.TC ---
Addendum entered and electronically signed by Jonny Guan MD 05/29/24 15:57:
Hypokalemia
Original Note:
Today's Communication/Plan
-
Assessment / Plan
Assessment / Plan
General: Well Developed and Well Nourished
HEENT: Normocephalic and Atraumatic
Respiratory: Clear to Auscultation
Cardiac: Regular Rhythm and S1/S2
GI: Soft, Nontender and Nondistended
Skin: Warm
Neuro: Awake, Alert, Oriented and AO x 3
Psych: Calm
Ecoli bacteremia, source UCx +
-Sensitive Rocephin therefore will transition to cefdinir 300 mg twice a day to complete 9 more days
Chronic hypoxemic respiratory failure, 4 L home O2
-COVID flu negative
-?pulmonary cachexia
Demand ischemia in the setting of acute infection
-No chest pain no EKG changes
-Troponins down trended
-Cardiology eval
COPD
-Not in exacerbation as there is no wheezing
Anxiety/depression
-Continue anxiolytics/antidepressants
Outpatient PCP updated.
Since being in the hospital has been off of hydrochlorothiazide and amlodipine. Therefore we will recommend to resume hydrochlorothiazide and to check her blood pressure twice a day if greater than 140 persistently then can resume taking
amlodipine. PCP has been updated about this via [employer] [facility].
More than 30 minutes spent in discharge including
Final examination of the patient
Summarizing hospital stay
Instructions for continuing care to all relevant caregivers
Preparation of discharge records, prescriptions, and referral forms
Total time spent (in minutes): 33mins
Anticipated Discharge: Today
Subjective/Interval History
-
Date of Service: May 20, 2024
Seen and examined. No new complaints. No acute overnight events.
Objective Data
-
Labs:
Laboratory Results
05/20/24
07:47
WBC 12.5 H
Hgb 9.9 L
Hct 29.6 L
Plt Count 282
Sodium 139
Potassium 3.5
Chloride 99
Carbon Dioxide 32 H
BUN 12
Creatinine 0.7
Glucose 100 H
Calcium 8.1 L
Vital Signs:
Vital Signs
Temp Pulse Resp BP Pulse Ox
98.6 F 60 20 137/53 98
05/20/24 11:55 05/20/24 11:55 05/20/24 11:55 05/20/24 11:55 05/20/24 11:55
I&O
05/19/24 05/20/24 05/21/24
06:59 06:59 06:59
Intake Total 2580 / 2580 780 / 780
Balance 2580 / 2580 780 / 780
[2024-05-20] MEDS: VENTOLIN NEBULES INH (15:26)
--- NOTE | 2024-05-22 10:24 | PN.CDI ---
CDI
- -
CDI:
Physician Documentation Request
Admit Date: 05/18/24 03:30
Dear Doctor Roge,
Please review the following and provide your response in the progress notes.
Clinical Indicators:
Pt admitted with Sepsis 2/2 ecoli UTI
Potassium levels are as below/Per MAR 40 MEQ KCL Elixir every 4 hours for 2 doses ordered on 05/18
Laboratory Tests
05/17/24 05/18/24 05/19/24
21:35 05:47 08:57
Potassium 3.3 L 3.1 L 3.4 L
Based on the above, could you clarify in the progress notes, the appropriate diagnosis, if significant, that supports the above abnormalities and additional evaluation, monitoring and/or treatment rendered:
Hypokalemia
Abnormal lab value only
Other ( please specify)
Use of terms such as suspected, likely, concern for, or probable (associated with a specific diagnosis that is being evaluated, monitored, or treated as if it exists) are acceptable and can be coded in the inpatient setting, when documented at the
time of discharge.
Thank you,
Senia Segundo RN
CDI Specialist
[place] [employer]
Please use your independent medical judgment in providing your response.
== END 2024-05-20 15:58 | disposition home health service (06) | DRG 872 ==
LOC: 4 EAST ACU 03:30
PROVIDERS: ADMITTING PHYSICIAN Hospitalist; ATTENDING PHYSICIAN Hospitalist; CONSULT PHYSICIAN Internal Medicine Cardiovascular Disease; EMERGENCY PHYSICIAN Emergency Medicine; FAMILY PHYSICIAN Physician Assistant
DX: A41.51 Sepsis due to Escherichia coli [E. coli] (principal); J44.1 Chronic obstructive pulmonary disease with (acute) exacerbation; J47.0 Bronchiectasis with acute lower respiratory infection; I5A Non-ischemic myocardial injury (non-traumatic); J96.11 Chronic respiratory failure with hypoxia; N39.0 Urinary tract infection, site not specified; F32.A Depression, unspecified; I10 Essential (primary) hypertension; E78.00 Pure hypercholesterolemia, unspecified; K21.9 Gastro-esophageal reflux disease without esophagitis; M19.90 Unspecified osteoarthritis, unspecified site; E87.6 Hypokalemia; F41.9 Anxiety disorder, unspecified; R63.0 Anorexia; Z99.81 Dependence on supplemental oxygen; Z90.710 Acquired absence of both cervix and uterus; Z90.49 Acquired absence of other specified parts of digestive tract; Z79.82 Long term (current) use of aspirin; Z86.73 Personal history of transient ischemic attack (TIA), and cerebral infarction without residual deficits; Z87.891 Personal history of nicotine dependence; Z88.5 Allergy status to narcotic agent; Z88.6 Allergy status to analgesic agent; Z11.52 Encounter for screening for COVID-19
CPT/HCPCS: 71045; 80048; 80053; 81003; 81015; 83605; 83880; 84443; 84484; 85025; 85027; 87040; 87077; 87086; 87149; 87186; 87205; 87502; 87811; 93005; 94640; 94760; 96361; 96374; 97163; 97167; 97530; 99285